=== PATIENT | female | born 2000 | race Caucasian/White ===

== ENCOUNTER → 2019-03-07 | Day surgery (SDC) | payer BC ==
[~2019-03-07] MED LIST: IV RINGERS,LACTATED 1000ML 1,000 ML IV ONE; IV RINGERS,LACTATED 1000ML 1,000 ML IV SCH; PROPOFOL 20 ML IV ONE
[2019-03-07 09:22] VITALS: BP 112/71
--- NOTE | 2019-03-10 16:06 | PATHOLOGY ---
[facility] Accession Number: [id number] . 01 Material submitted: . duodenum - DUODENAL BIOPSIES . 01 Clinical history: . Pre-OP DX: Abdominal pain, nausea, diarrhea Post-OP DX: Rule out celiac, rule out gastroenteritis . 02 Diagnosis: Duodenal biopsies: - No significant pathologic abnormalities. (JPM:[facility] 03/10/2019) QTP/03/10/2019 . 02 Comment: Sections of the duodenal biopsy reveal multiple segments of duodenal mucosa showing focally prominent submucosal David's glands. Where best oriented, the mucosal villi show no sprue-like changes or significant inflammatory changes. (JPM:[facility] 03/10/2019) . 02 Electronically signed: . Anatoly Galloway MD, Pathologist NPI- [id number] . 01 Gross description: . Received in formalin labeled "David, Sharifa, duodenal biopsy," and additionally labeled on the requisition as "biopsies," are 5 segments of isabel soft tissue measuring 1.6 x 0.9 x 0.3 cm in aggregate dimensions and ranging from 0.3 to 0.5 cm in maximum dimension. The specimen is submitted entirely in cassette A1. (TSD; 03/07/2019) TOB/TOB . 02 Pathologist provided ICD-10: R10.9, R11.0, R19.7 . 02 CPT . 708532 Specimen Comment: A courtesy copy of this report has been sent to Specimen Comment: [phone], . Specimen Comment: Report sent to / DR MAYERS Performed at: [address], [place], [place] [id number] MD Renard Krishnan MD Phone: [phone] Performed at: 02 [facility] [address] [place] [id number] MD Anatoly Galloway MD Phone: [phone]
== END ==
LOC: SURG 07:57
PROVIDERS: ATTEND Internal Medicine Gastroenterology
DX: K31.89 Other diseases of stomach and duodenum (principal); F15.90 Other stimulant use, unspecified, uncomplicated
CPT/HCPCS: 43239; 81025; 88305; J2704